=== PATIENT | male | born 1995 | race Caucasian/White ===

== ENCOUNTER → 2024-06-04 | Outpatient (CLI) | payer OTHER ==
--- NOTE | 2024-06-04 12:37 | US ---
EXAMINATION TYPE: US abdomen complete DATE OF EXAM: 06/04/2024 COMPARISON: NONE CLINICAL INDICATION: Male, 28 years old with history of R10.11 RUQ PAIN; patient has mono in January, RUQ pain ever since TECHNIQUE: Grayscale and color Doppler imaging of the abdomen was performed. FINDINGS: EXAM MEASUREMENTS: Liver Length: 17.6 cm Gallbladder Wall: 0.2 cm CBD: 0.3 cm Spleen: 11.3 cm Right Kidney: 9.9 x 4.0 x 5.7 cm Left Kidney: 10.2 x 3.7 x 5.0 cm Pancreas: wnl Liver: intercostal imaging due to bowel gas, wnl Gallbladder: sludge like appearance, no obvious stones, normal wall Evidence for sonographic Gottlieb's sign: no CBD: wnl Spleen: wnl Right Kidney: wnl Left Kidney: 1.6 x 2.8 x 2.2cm hypoechoic circumscribed lesion, normal anatomy versus other etiology Upper IVC: wnl Abd Aorta: proximal portion gassed out The liver is homogenous. The intrahepatic portion of the IVC and mid and distal abdominal aorta are within normal limits. The proximal abdominal aorta is acute by overlying bowel gas. There is no evide nce of cholelithiasis. Gallbladder sludge. No wall thickening or surrounding fluid. Common bile duct is unremarkable. The visualized portions of the pancreas are homogenous. The spleen is unremarkable . Normal size. Kidneys are symmetric and free of hydronephrosis. Left renal sinus cyst. IMPRESSION: 1. Gallbladder sludge without evidence for acute cholecystitis. 2. Left renal sinus cyst. [facility], , 06/04/2024 12:34 PM
== END | disposition home or self-care (01) ==
LOC: RADUSWWP 07:49
PROVIDERS: ATTEND Family Medicine
DX: R10.11 Right upper quadrant pain
CPT/HCPCS: 76700